=== PATIENT | male | born 1960 | race African-American/Black ===

== ENCOUNTER 2021-11-03 16:12 | Emergency (ER) | payer MEDICAID, OTHER ==
[~2021-11-03] VITALS: Ht 190.5 cm; Wt 99.8 kg
[2021-11-03] MEDS ORDERED: fentaNYL CITRATE 100 MCG/2 ML VL IV ONE ×2 (17:30→18:30)
[2021-11-03] MEDS ORDERED: KETOROLAC TROMETH 30 MG/ML 1ML VIAL IV ONE (17:30)
[2021-11-03] MEDS ORDERED: IOHEXOL 300 MG/ML 100ML BOTTLE IJ ONE (17:45)
[2021-11-03] MEDS ORDERED: HYDR-4798 PO (21:36)
[2021-11-03] MEDS ORDERED: IBU600T PO (21:36)
[2021-11-03 22:00] VITALS: BP 134/79
== END 2021-11-03 22:34 | disposition home or self-care (01) ==
LOC: EDBD 16:12 → EDSEX 16:12 → ER 16:12
DX: S33.5XXA Sprain of ligaments of lumbar spine, initial encounter (principal); S13.9XXA Sprain of joints and ligaments of unspecified parts of neck, initial encounter; S20.211A Contusion of right front wall of thorax, initial encounter; S60.511A Abrasion of right hand, initial encounter; V43.52XA Car driver injured in collision with other type car in traffic accident, initial encounter; Y93.89 Activity, other specified; Y92.89 Other specified places as the place of occurrence of the external cause; Y99.8 Other external cause status
CPT/HCPCS: 71260; 72125; 72128; 72131; 73130; 74177; 96374; 96375; 99285; J1885; J3010; Q9967